=== PATIENT | female | born 1940 | race Caucasian/White ===

== ENCOUNTER 2021-03-06 11:02 | Inpatient (IN) | payer MEDICARE, OTHER ==
[~2021-03-06] VITALS: Ht 165.1 cm; Wt 65.8 kg
[2021-03-06] MEDS ORDERED: IV NORMAL SALINE 1,000ML 1,000 ML IV ONE ×2 (11:15→13:45)
--- NOTE | 2021-03-06 11:23 | PHYS DOC ---
Past History Past Medical History: Diabetes, High Cholesterol, Hypertension Additional Past Medical Histor: Parkinsonism. overactive bladder Past Surgical History: Cholecystectomy, Hysterectomy Additional Past Surgical Histo: Bilateral knee, right ankle, right shoulder Smoking: Non-smoker Alcohol Use: Rarely Drug Use: None General Adult EDM: Chief Complaint: HYPOTENSION HPI: HPI: 80-year-old female with past medical history of parkinsonism presents via EMS with report of syncopal episode prior to arrival. Patient does report history of lightheadedness. Reports history of more frequent falls. EMS reports they were called out for a lift assist 2 days ago. Patient does report some left occipital headache and history of hitting her head "some days ago ". Denies use of blood thinners. Denies chest pain. Denies dysuria or hematuria. Denies chest pain, cough, or shortness of breath. EMS reports low blood pressure upon their arrival of 82/40 for which they started IV fluid hydration. Review of Systems: Review of Systems: Constitutional: Denies fever or chills Eyes: Denies redness or eye pain HENT: Denies nasal congestion or sore throat Respiratory: Denies cough or shortness of breath Cardiovascular: Denies chest pain or palpitations GI: Denies abdominal pain, nausea, or vomiting : Denies dysuria or hematuria Musculoskeletal: Denies back pain or joint pain Integument: Denies rash or skin lesions Neurologic: Reports headache, generalized weakness, frequent falls, and syncope Complete systems were reviewed and found to be within normal limits, except as documented in this note. Current Medications: Current Meds: Current Medications Medications (Trade) Dose Ordered Sig/Chaya Start Time Stop Time Status Last Admin Dose Admin Sodium Chloride 1,000 ml @ 1,000 mls/hr 1X ONCE 03/06/21 11:15 03/06/21 12:14 UNV Physical Exam: PE: Constitutional: Well developed, well nourished, no acute distress, non-toxic appearance HENT: Normocephalic, atraumatic Eyes: PERRL, EOMI, conjunctiva normal, no discharge, no nystagmus Neck: Normal range of motion, no midline tenderness, supple Lungs & Thorax: No respiratory distress, equal chest rise and fall Abdomen: Soft, no tenderness, no guarding/rebound tenderness/distention Skin: Warm, dry, no erythema, no rash Back: No midline tenderness, no CVA tenderness Extremities: No tenderness, ROM intact, no edema, mild resting tremor to bilateral hands and arms Neurologic: Alert and oriented X 3, normal motor function, normal sensory function, no focal deficits noted Psychologic: Affect normal, judgment normal EKG: EKG: @1119 NSR at 72bpm, NO ST elevation, QRS 82ms, QT/QTc 390/429ms, p wave inversion III Radiology/Procedures: Radiology/Procedures: PROCEDURE: PORTABLE CHEST 1V EXAM: Chest, single view. HISTORY: Syncope. COMPARISON: None. FINDINGS: A frontal view of the chest is obtained. There is no infiltrate, pleural effusion or pneumothorax. The heart is normal in size. There are surgical anchors within the left humeral head. IMPRESSION: No acute pulmonary finding. Electronically signed by: Brooklynn Brandt MD (03/06/2021 11:56 AM) [id number] PROCEDURE: CT HEAD WO CONTRAST EXAM: Head CT without contrast. HISTORY: Headache. Near-syncope. TECHNIQUE: Computed tomographic images of the head were obtained without contrast. *One or more of the following individualized dose reduction techniques were utilized for this examination: 1. Automated exposure control. 2. Adjustment of the mA and/or kV according to patient size. 3. Use of iterative reconstruction technique. COMPARISON: None. FINDINGS: There is no acute or subacute extra-axial or intraparenchymal hemorrhage. There is no mass effect or midline shift. There is no hydrocephalus. There are areas of decreased attenuation within the cerebral white matter, nonspecific and likely related to chronic small vessel disease. There is cerebral volume loss. The visualized portions of the orbits, paranasal sinuses and mastoid air cells are unremarkable. No suspicious calvarial lesion is seen. IMPRESSION: 1. No acute intracranial finding. Note is made that MRI is more sensitive for acute infarction. 2. Cerebral volume loss. 3. Cerebral white matter changes, likely due to chronic small vessel disease. Electronically signed by: Brooklynn Brandt MD (03/06/2021 11:57 AM) [id number] Heart Score: C/O Chest Pain: N/A Course & Med Decision Making: Course & Med Decision Making Pertinent Labs and Imaging studies reviewed. (See chart for details) Patient with past medical history of parkinsonism presents via EMS with report of frequent falls over the last several days with syncopal episode today. Patient also reports headache to left occiput. Patient neurologically intact. Patient reportedly with low blood pressure upon EMS arrival which improved after IV fluid hydration per EMS. EKG stable. Labs obtained and posted to chart. UA with signs of infection. Empiric antibiotics given. CT head and chest x-ray without acute finding. Orthostatic VS positive with increase in pulse by 10+. Patient requiring admission for further evaluation and treatment. Discussed with Dr. Hernandez (hospitalist) who is in agreement with admission. Discussed findings and plan with patient and spouse, who acknowledge understanding and agreement. Dragon Disclaimer: Dragon Disclaimer: This electronic medical record was generated, in whole or in part, using a voice recognition dictation system. Departure Departure: Impression: Primary Impression: Syncope Qualified Codes: R55 - Syncope and collapse Additional Impressions: Frequent falls Orthostatic hypotension Hx of Parkinson's disease Headache Qualified Codes: R51.9 - Headache, unspecified Urinary tract infection Qualified Codes: N30.00 - Acute cystitis without hematuria Disposition: ADMITTED INPATIENT Admitting Physician: Peyton Hernandez Condition: STABLE Referrals: JASVIR CHOI MD (PCP) NIHSS - ED NIH Stroke Scale: NIH Stroke Scale Response (Comments) Value Level of Consciousness: 0 Alert/Responsive 0 LOC Questions: 0 Answers both correctly 0 LOC Commands: 0 Performs both tasks 0 Best Gaze: 0 Normal 0 Visual: 0 No visual loss 0 Facial Palsy: 0 Normal, symmetrical 0 Motor - Left Arm 0 No drift 0 Motor - Right Arm 0 No drift 0 Motor - Left Leg 0 No drift 0 Motor: Right Leg 0 No drift 0 Limb Ataxia: 0 Absent 0 Sensory: 0 No loss 0 Best Language: 0 Normal 0 Dysathria: 0 Normal 0 Extinction and Inattention: 0 Normal 0 Total 0 GONZALESSEBASTIAN DO March 06, 2021 11:23
--- NOTE | 2021-03-06 11:29 | EKG ---
[address] [address] Test Date: 2021-03-06 Test Time: 11:19:24 Pat Name: ANDREW GUZMAN Department: Room: Gender: F Fence Maker: NIKOS : [id number] Requested By: SEBASTIAN GONZALES Order Number: [id number] Reading MD: Measurements Intervals [place] Rate: 72 P: -34 SD: 184 QRS: 15 QRSD: 82 T: 34 QT: 390 QTc: 429 Interpretive Statements SUPRAVENTRICULAR RHYTHM QRS(T) CONTOUR ABNORMALITY CONSIDER ANTEROSEPTAL MYOCARDIAL DAMAGE POSSIBLY ABNORMAL ECG RI6.02 No previous ECG available for comparison
[2021-03-06 11:34] LABS: BASO # 0.1 x10^3/uL (0.0-0.2); BASO % 1 % (0-3); EOS # 0.3 x10^3/uL (0.0-0.7); EOS % 3 % (0-3); HEMATOCRIT 37.1 % (36.0-47.0); LYMPH # 0.8 x10^3/uL (1.0-4.8); LYMPH % 10 % (24-48); MEAN CORPUSCULAR HEMOGLOBIN 28 pg (25-35); MEAN CORPUSCULAR HGB CONC 33 g/dL (31-37); MEAN CORPUSCULAR VOLUME 86 fL (79-100); MONO # 0.6 x10^3/uL (0.0-1.1); MONO % 7 % (0-9); NEUT # 7.1 x10^3uL (1.8-7.7); NEUT % 80 % (31-73); PLATELET COUNT 267 x10^3/uL (140-400); RED BLOOD COUNT 4.33 x10^6/uL (3.50-5.40); RED CELL DISTRIBUTION WIDTH 17.4 % (11.5-14.5); WHITE BLOOD COUNT 8.9 x10^3/uL (4.0-11.0)
[2021-03-06 11:41] LABS: ANION GAP 11 (6-14); BLOOD UREA NITROGEN 12 mg/dL (7-20); BUN/CREATININE RATIO 10 (6-20); CALCIUM 8.6 mg/dL (8.5-10.1); CARBON DIOXIDE 25 mmol/L (21-32); CHLORIDE 103 mmol/L (98-107); CREATININE 1.2 mg/dL (0.6-1.0); GFR 43.4; GLUCOSE 143 mg/dL (70-99); SODIUM 139 mmol/L (136-145)
[2021-03-06 11:56] LABS: ALBUMIN 3.2 g/dL (3.4-5.0); ALK PHOS 67 U/L (46-116); ALT (SGPT) 6 U/L (14-59); AST (SGOT) 7 U/L (15-37); TOTAL BILIRUBIN 1.6 mg/dL (0.2-1.0); TOTAL PROTEIN 6.4 g/dL (6.4-8.2)
--- NOTE | 2021-03-06 11:58 | RAD ---
EXAM: Chest, single view. HISTORY: Syncope. COMPARISON: None. FINDINGS: A frontal view of the chest is obtained. There is no infiltrate, pleural effusion or pneumo thorax. The heart is normal in size. There are surgical anchors within the left humeral head. IMPRESSION: No acute pulmonary finding. Electronically signed by: Brooklynn Brandt MD (03/06/2021 11:56 AM) [id number]
--- NOTE | 2021-03-06 11:59 | RAD ---
EXAM: Head CT without contrast. HISTORY: Headache. Near-syncope. TECHNIQUE: Computed tomographic images of the head were obtained without contrast. *One or more of the following individualized dose reduction techniques were utilized for this examina tion: 1. Automated exposure control. 2. Adjustment of the mA and/or kV according to patient size. 3. Use of iterative reconstruction technique. COMPARISON: None. FINDINGS: There is no acute or subacute extra-axial or intraparenchymal hemorrhage. There is no mass effect or midline shift. There is no hydrocephalus. There are areas of decreased attenuation within the cerebral white matter, nonspecific and likely rel ated to chronic small vessel disease. There is cerebral volume loss. The visualized portions of the orbits, paranasal sinuses and mastoid air cells are unremarkable. No s uspicious calvarial lesion is seen. IMPRESSION: 1. No acute intracranial finding. Note is made that MRI is more sensitive for acute infarction. 2. Cerebral volume loss. 3. Cerebral white matter changes, likely due to chronic small vessel disease. Electronically signed by: Brooklynn Brandt MD (03/06/2021 11:57 AM) [id number]
[2021-03-06 13:01] LABS: BACTERIA,URINE MANY /HPF (0-FEW); BILIRUBIN,URINE NEG (NEG); CLARITY,URINE CLOUDY; COLOR,URINE YELLOW; GLUCOSE,URINE NEG (NEG); NITRITE,URINE NEG (NEG); RBC,URINE OCC /HPF (0-2); UROBILINOGEN,URINE 0.2 mg/dL (0.2 mg/dL); WBC,URINE 20-40 /HPF (0-4)
[2021-03-06] MEDS ORDERED: cefTRIAXone SODIUM 1 GM VIAL ONE (13:39)
[2021-03-06] MEDS ORDERED: IV NORMAL SALINE 50ML 50 ML ONE (13:39)
[2021-03-06] MEDS ORDERED: ONDANSETRON PF 4 MG/2 ML VIAL. IVP PRN (13:45)
[2021-03-06 14:26] VITALS: BP 156/84
[2021-03-06] MEDS ORDERED: EZET10TA20 PO (15:23)
[2021-03-06] MEDS ORDERED: DONE5TAB7 PO (15:23)
[2021-03-06] MEDS ORDERED: MIRA25TA PO (15:23)
[2021-03-06] MEDS ORDERED: PITA2TAB2 PO (15:23)
[2021-03-06] MEDS ORDERED: CARB1TAB22 PO (15:23)
[2021-03-06] MEDS ORDERED: SITA50TA PO (15:23)
[2021-03-06] MEDS ORDERED: ASPI-630 PO (15:23)
[2021-03-06] MEDS ORDERED: GUAI400T78 PO (15:23)
[2021-03-06] MEDS ORDERED: EZETIMIBE 10 MG TABLET PO SCH (18:00)
--- NOTE | 2021-03-06 18:24 | NUR ---
Nursing note pt is increasingly agitated and told this nurse"i just want to go home and i will call the icing machine operator on anyone if i cant leave" when educated on why pt was in the hospital and plan of care pt stated "if you dont let me leave I am going to wish you and curse you" pt has stated that pt " has a tendency to get violent" and in the past when in facilities "they have had to give her medication to calm her down"
--- NOTE | 2021-03-06 18:24 | NUR ---
Admission note Pt admitted to room 105 at 1430 via ems from ED with hypotension.
[2021-03-06 19:07] VITALS: BP 110/70
--- NOTE | 2021-03-06 19:10 | HP ---
ADMIT DATE: 03/06/2021 HISTORY OF PRESENT ILLNESS: The patient is a 80-year-old female patient with multiple medical problems including parkinsonism, who brought to the Emergency Room by EMS with a reported syncopal episode prior to arrival. The patient does not report history of lightheadedness. She also reported history of more frequent falls. She stated that she has fallen about 7 times over the last 7 days. EMS reports they were called out ____ 2 days ago. The patient does report some left occipital headache and history of hitting her head some days ago. She denied using any blood thinners. Denied any chest pain. Denied any dysuria or hematuria. EMS reports low blood pressure upon arrival of 82/40 for which they started her on IV fluid. By the time she arrived to the Emergency Room, her blood pressure was 104/73. She was extensively investigated in the Emergency Room, has had lab work done which was mostly unremarkable. Her creatinine is slightly elevated, but otherwise most of the lab works were unremarkable. Her urinalysis showed the urine was cloudy with a pH of 7, specific gravity of 1.025. There was small amount of leukocyte esterase, occasional rbc's, 20-40 wbc's and many bacteria. The patient was admitted with syncope, frequent falls, orthostatic , history of Parkinson's disease, headache and urinary tract infection. She apparently was started on ceftriaxone and received 1000 mL of normal saline and was admitted for further evaluation and treatment. PAST MEDICAL HISTORY: Significant for type 2 diabetes mellitus, hypertension, hyperlipidemia, Parkinson's disease, overactive bladder. PAST SURGICAL HISTORY: Significant for right leg and ankle fracture, redo right leg and ankle fracture, right knee meniscal tear, left knee meniscus, left shoulder rotator cuff repair, right knee replacement, has cholecystectomy. She has a prolapse and repair surgery, hysterectomy, bilateral cataract extraction, vocal cord implants. ALLERGIES: She has no known drug allergies. MEDICATIONS: She is currently on following medication: She is on Livalo 2 mg once a day, Januvia 50 mg once a day, Aricept 5 mg once a day, Zetia 10 mg once a day, guaifenesin 400 mg once a day, carbidopa/levodopa 25/100 two tablets morning and night, Myrbetriq 50 mg once a day, aspirin 81 mg once a day, Zantac 300 mg once a day, and losartan takes half a tablet 25 mg once a day. SOCIAL HISTORY: She is and lives with her . She has never smoked, does not drink alcohol or use any recreational drugs. 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 FAMILY HISTORY: She has one brother younger and healthy. Both her parents , but does not know the age of , but both of myocardial infarction. REVIEW OF SYSTEMS: As per history of present illness. PHYSICAL EXAMINATION: GENERAL: When I saw her, the patient was resting slightly propped up in bed, in no apparent respiratory distress. There was no pallor, jaundice, cyanosis, or thyromegaly. No jugular venous distention, no lower limb edema. VITAL SIGNS: Heart rate on arrival was 80 beats per minute, blood pressure is 104/73, temperature was 97.8, respiratory rate was 16 and oxygen saturation was 99% on room air. HEAD, EYES, EARS, NOSE, AND THROAT: Normocephalic and atraumatic. NECK: Supple. HEART: Showed normal first and second heart sounds. No gallop, rub or murmur. CHEST: Clear to auscultation, no crepitation or rhonchi. ABDOMEN: Distended, soft, nontender. NEUROLOGIC: She was somewhat confused, but otherwise all her cranial nerves are intact. She moves extremities without difficulty. LABORATORY DATA: Her lab work this morning showed a white cell count of 8900, hemoglobin 12, hematocrit 37, MCV 86 and platelet count of 267,000 with normal manual differential. Her chemistry showed a serum sodium 139, potassium 4, chloride 103, bicarbonate 25, anion gap of 11, BUN 12, creatinine 1.2. Estimated GFR was 43 mL per minute. Her glucose was 143, calcium was 8.6, magnesium 2. Total bilirubin 1.6. AST, ALT, alkaline phosphatase were normal. CK was 31. Total protein 6.4, albumin 3.2. Her urine was yellow, cloudy with a pH of 7, specific gravity of 1.025. There is trace of protein, negative for glucose. There was trace of ketones. The urine there is small amount of leukocyte esterase, no rbc's, but 20-40 wbc's, too many bacteria. ASSESSMENT: The patient was admitted with syncopal episode, urinary tract infection, frequent falls, history of Parkinson's disease. PLAN: My plan is to continue with IV fluid. Continue with IV antibiotics. We will resume all her medication. I will consult Dr. Schroeder. We will check her orthostatics and also consult physical and occupational therapy. BLAYNE/GRZEGORZ/EVIN DR: BLAYNE/randy TID: [id number]
[2021-03-06] MEDS: IV NORMAL SALINE 1,000ML 1,000 ML IV SCH (19:22)
[2021-03-06] MEDS: ASPIRIN CHEWABLE 81 MG TABLET. PO SCH (21:34)
[2021-03-06] MEDS: ATORVASTATIN CALCIUM 10 MG TABLET. PO SCH (21:34)
[2021-03-06] MEDS: NYSTATIN TOPICAL POWDER 15GM BOTTLE. TP SCH (21:35)
[2021-03-06 23:15] VITALS: BP 118/75
[2021-03-07 05:10] VITALS: BP 180/89
[2021-03-07 06:46] LABS: ALBUMIN 2.8 g/dL (3.4-5.0); ALBUMIN/GLOBULIN RATIO 0.9 (1.0-1.7); CALCIUM 8.1 mg/dL (8.5-10.1); CREATININE 0.9 mg/dL (0.6-1.0); GFR 60.6; POTASSIUM 3.6 mmol/L (3.5-5.1); TOTAL BILIRUBIN 1.3 mg/dL (0.2-1.0); TOTAL PROTEIN 5.8 g/dL (6.4-8.2)
[2021-03-07] MEDS: IV NORMAL SALINE 1,000ML 1,000 ML IV SCH ×2 (06:50→20:10)
[2021-03-07] MEDS: CARBIDOPA/LEVODOPA 25/100MG TABLET PO SCH ×2 (07:59→12:25)
[2021-03-07] MEDS: EZETIMIBE 10 MG TABLET PO SCH (07:59)
[2021-03-07] MEDS: LINAGLIPTIN 5 MG TABLET PO SCH (07:59)
[2021-03-07] MEDS: DONEPEZIL HCL 5 MG TABLET. PO SCH (07:59)
[2021-03-07] MEDS: MIRABEGRON 25 MG TAB.ER.24H PO SCH (08:00)
[2021-03-07] MEDS: NYSTATIN TOPICAL POWDER 15GM BOTTLE. TP SCH ×2 (09:00→20:21)
[2021-03-07] MEDS ORDERED: SITAGLIPTIN PHOSPHATE 50 MG PO SCH (09:00)
[2021-03-07] MEDS ORDERED: NON FORMULARY ITEM (Pitavastatin Calcium (Livalo) 2 MG) PO SCH (09:00)
[2021-03-07 10:35] VITALS: BP 146/86
[2021-03-07 15:23] VITALS: BP 147/81
--- NOTE | 2021-03-07 18:10 | NUR ---
PATIENT HAD A PLEASANT SHIFT, CALM AND QUIET, STAYED AWAKE IN A BED, OR UP IN A CHAIR WITH PERSONAL ALARM ON, PATIENT IS CONFUSED AND FORGETFUL D/T DEMENTIA, ASKING FOR FAMILY, ASKING FOR HER DOGS, PATIENT WAS REORIENTED A FEW TIMES. PATIENT IS COOPERATIVE WITH CARE AND COMPLIANT WITH MEDICATIONS TAKEN WHOLE.
[2021-03-07 18:43] VITALS: BP 151/79
[2021-03-07] MEDS: LACTOBACILLUS RHAMNOSUS GG 1 CAPSULE. PO SCH (20:20)
[2021-03-07] MEDS: ATORVASTATIN CALCIUM 10 MG TABLET. PO SCH (20:20)
[2021-03-07] MEDS: ASPIRIN CHEWABLE 81 MG TABLET. PO SCH (20:20)
--- NOTE | 2021-03-08 01:51 | PN ---
DATE: 03/07/2021 ATTENDING PHYSICIAN: Dr. Hernandez. SUBJECTIVE: The patient still remains very weak. She is not dizzy. She remembers close to passing out, but did not lose consciousness totally. OBJECTIVE: VITAL SIGNS: Blood pressure this morning is 148/86. No orthostasis. Pulse is 80 and regular. She is afebrile. Oxygen saturation 99% on room air. HEENT: Head is without trauma. Pupils are reactive. Sclerae nonicteric. Oropharynx is clear. NECK: Supple, no bruits. LUNGS: Good breath sounds. CARDIOVASCULAR: Showed regular heart tones. ABDOMEN: Soft. EXTREMITIES: Without edema. NEUROLOGIC FINDING: Still very weak and requires 1:1 for transfer. ASSESSMENT: 1. A 80-year-old female with syncopal episode, resolved. 2. Urinary tract infection. 3. Parkinson's disease with worsening clinical symptoms. 4. Frequent falls. PLAN: 1. Recs per Neurology. Her Sinemet dose has been increased. 2. Continue antibiotics. 3. The and the family have now both agreed. They will like a higher level of care. We will try to get her to rehab, subacute rehab they prefer ____. ANTON/ESDRAS/CHAPINCITO DR: ANTON/randy TID: [id number]
[2021-03-08 05:50] VITALS: BP 145/84
[2021-03-08] MEDS: LACTOBACILLUS RHAMNOSUS GG 1 CAPSULE. PO SCH ×2 (08:07→20:43)
[2021-03-08] MEDS: DONEPEZIL HCL 5 MG TABLET. PO SCH (08:07)
[2021-03-08] MEDS: EZETIMIBE 10 MG TABLET PO SCH (08:07)
[2021-03-08] MEDS: NYSTATIN TOPICAL POWDER 15GM BOTTLE. TP SCH ×2 (08:08→20:43)
[2021-03-08] MEDS: LINAGLIPTIN 5 MG TABLET PO SCH (08:08)
[2021-03-08] MEDS: MIRABEGRON 25 MG TAB.ER.24H PO SCH (08:08)
[2021-03-08] MEDS: CARBIDOPA/LEVODOPA 25/100MG TABLET PO SCH ×3 (08:08→20:43)
--- NOTE | 2021-03-08 09:14 | CONS ---
DATE OF CONSULTATION: 03/07/2021 REFERRING PHYSICIAN: Dr. Montgomery/David REASON FOR CONSULTATION: History of Parkinson disease and possible syncopal episode. HISTORY OF PRESENT ILLNESS: This is a 80-year-old right-handed female who was admitted through emergency room on account of a possible syncopal episode and frequent falls. According to the patient, she has had Parkinson disease diagnosed several years ago. She complains of occipital headaches of mild severity. She denies photophobia or phonophobia. The patient did have a possible syncopal episode before arrival to the emergency room. EMS was called and blood pressure at the scene was 82/40. She was started on IV line and given fluid. On arrival to the emergency room, her blood pressure was 104/73. The last fall was yesterday. As Parkinson's disease symptoms, she has been having bradykinesia, difficulty getting in and out of a chair and unsteady gait. She also had urinary frequency and she was found to have urinary tract infections. Currently, patient denies visual disturbances, nausea, vomiting, chest pain, shortness of breath or palpitation, dysarthria or dysphagia. PAST MEDICAL HISTORY: Significant for diabetes mellitus, hypertension, hyperlipidemia, Parkinson disease as described above and overactive bladder. PAST SURGICAL HISTORY: Significant for right leg and ankle fracture required surgery, right and left knee surgery for meniscus injuries, left shoulder rotator cuff repair, total right knee replacement, cholecystectomy, hysterectomy, and bilateral cataract extraction with a vocal cord implant. FAMILY HISTORY: Positive for coronary artery disease in both parents. SOCIAL HISTORY: The patient is . She lives with her at home. She denies smoking, alcohol drinking or illicit drug use. 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 CURRENT HOME MEDICATIONS: Livalo 2 mg once daily, Januvia 50 mg once daily, Aricept 5 mg daily, Zetia 10 mg daily, carbidopa/levodopa 25/100 mg 2 tablets daily, Myrbetriq 50 mg once daily, aspirin 81 mg daily, Zantac 300 mg daily and losartan 25 mg daily. ALLERGIES: No known drug allergies. PHYSICAL EXAMINATION: GENERAL: Well-developed, well-nourished female in no acute distress. VITAL SIGNS: She weighs 67.3 kilos, blood pressure 146/86, respiratory rate 20, pulse is 106, temperature 98, oxygen saturation 99% on room air. HEENT: Normocephalic, atraumatic, otherwise unremarkable. NECK: Supple, negative for carotid bruit, lymphadenopathy or thyromegaly. LUNGS: Clear to A and P. CARDIOVASCULAR: Regular rate and rhythm, normal S1, S2. There is no S3, S4 or murmur. ABDOMEN: Soft. Bowel sounds positive. EXTREMITIES: Negative for cyanosis, clubbing or pedal edema. NEUROLOGIC: Mental status: The patient is alert and oriented to herself and place. Her speech is slow, but fluent. No language dysfunction. Memory, judgment and abstracting thinking are fair. The patient denies hallucination or delusion. Cranial nerves: Visual simental are full. The pupils are reactive to light and accommodation. Extraocular movements are intact. There is no nystagmus. There is no facial motor or sensory deficit. Hearing is intact bilaterally. The palate is elevated symmetrically. Sternocleidomastoid muscles are powerful bilaterally. The patient shrugs her shoulders symmetrically, protrudes her tongue in the midline without fasciculation or atrophy. Motor: No focal muscle bulk wasting. The tone is normal. Strength is 4/5 throughout. The patient does not have any resting tremor at this time, but she does have a blank face and decreased eye blinking. There is no motor or sensory facial asymmetry. The tone is normal. Sensory examination revealed a normal pinprick and light touch senses throughout. Deep tendon reflexes were symmetric and hypoactive with absent Achilles responses. Gait: The patient has difficulty to get up from the chair. Apparently, she has unsteady stance. LABORATORY DATA: CBC revealed blood cells of 8.9 thousand, hemoglobin 12, hematocrit 37.1, platelet count 267,000. Chemistry revealed sodium of 140, potassium 3.6, chloride 106, CO2 21, BUN 10, creatinine 0.9, glucose 112, calcium 8.1. Liver enzymes are low. Troponin level is normal. Urinalysis is small urinary leukocyte esterase with white blood cells between 20-40 with many bacteria. ASSESSMENT: 1. Longstanding history of Parkinson disease, presented with bradykinesia without significant resting tremor, but had difficulty with getting in and out of a chair. 2. Multiple medical problems include hypertension, hyperlipidemia, diabetes mellitus, possible syncopal episode due to orthostatic changes versus dehydration and a history of dementia. 3. Urinary tract infection. RECOMMENDATIONS: 1. Continue with current management initiated by Dr. Hernandez/Dr. Montgomery including antibiotics for urinary tract infections. 2. Continue with current home medication. 3. Increase carbidopa/levodopa 25/100 t.i.d. 4. Physical therapy evaluation. CLOVIS/CAMILO/NEVA DR: CLOVIS/randy TID: [id number]
[2021-03-08 11:04] VITALS: BP 118/80
[2021-03-08 15:55] VITALS: BP 151/92
--- NOTE | 2021-03-08 17:53 | NUR ---
NURSING NOTE THIS NURSE TOOK OVER PT CARE, REPORT FROM KYLE EDMOND. KYLE HURLEY.
[2021-03-08 19:31] VITALS: BP 151/88
--- NOTE | 2021-03-08 20:14 | NUR ---
Pt stated, "Hello! I just wanted to tell you I'm a dipshit. I found two dogs and I took them to [facility] and held a concert to raise $[id number]."
[2021-03-08] MEDS: ATORVASTATIN CALCIUM 10 MG TABLET. PO SCH (20:43)
[2021-03-08] MEDS: ASPIRIN CHEWABLE 81 MG TABLET. PO SCH (20:43)
--- NOTE | 2021-03-08 21:48 | PN ---
DATE: 03/08/2021 ATTENDING PHYSICIAN: Dr. Hernandez. SUBJECTIVE: The patient is in good spirits. She is able to ambulate with minimal one-on-one assistance. She has no further dizziness. OBJECTIVE FINDINGS: VITAL SIGNS: Blood pressure this morning is 145/84, pulse is 90 and regular. She was afebrile and her oxygen saturations are 95% on room air. HEENT: Head is without trauma. Pupils are reactive. Sclerae nonicteric. Oropharynx is clear. NECK: Supple, no bruits. LUNGS: Clear to auscultation. CARDIOVASCULAR: Regular heart tones. No gallops. ABDOMEN: Soft, scaphoid, nontender, no organomegaly. Normoactive bowel sounds. EXTREMITIES: Show no cyanosis or edema. NEUROLOGIC: The patient is a little bit stronger. She is able to ambulate with one-on-one help. ASSESSMENT: 1. A 80-year-old female with syncopal episode, resolved. 2. Parkinson's disease with worsening clinical symptoms. 3. Urinary tract infection. 4. Frequent falls. PLAN: 1. Recs per Neurology. Sinemet dose was increased. 2. Continue antibiotics for UTI. 3. We are awaiting placement at the rehab facility. ANTON/BAYRON DR: Hank TID: [id number]
[2021-03-09 06:00] VITALS: BP 148/78
[2021-03-09] MEDS: DONEPEZIL HCL 5 MG TABLET. PO SCH (08:24)
[2021-03-09] MEDS: LINAGLIPTIN 5 MG TABLET PO SCH (08:24)
[2021-03-09] MEDS: EZETIMIBE 10 MG TABLET PO SCH (08:24)
[2021-03-09] MEDS: MIRABEGRON 25 MG TAB.ER.24H PO SCH (08:25)
[2021-03-09] MEDS: CARBIDOPA/LEVODOPA 25/100MG TABLET PO SCH (08:25)
[2021-03-09] MEDS: LACTOBACILLUS RHAMNOSUS GG 1 CAPSULE. PO SCH (08:25)
[2021-03-09] MEDS: NYSTATIN TOPICAL POWDER 15GM BOTTLE. TP SCH (08:25)
--- NOTE | 2021-03-09 09:02 | DS ---
DATE OF DISCHARGE: 03/09/2021 ATTENDING PHYSICIAN: Dr. Hernandez. FINAL DISCHARGE DIAGNOSES: 1. Syncopal episode, resolved. 2. Parkinson's. 3. Dementia associated with Parkinson's disease. 4. Urinary tract infection. 5. Frequent falls. HISTORY AND PHYSICAL: The patient is a 80-year-old female with known longstanding Parkinson's disease. She had a syncopal episode. She was admitted for further treatment and evaluation. PHYSICAL EXAMINATION: Please see the dictated note. PERTINENT LABORATORY AND X-RAY STUDIES: Admission hemoglobin was 12.0 g/dL, white count was 8900. Chemistry panel showed normal electrolytes, creatinine was 0.9 mg percent. Nonfasting blood sugar 112. Transaminases were normal. The obligatory CT of the head showed no acute strokes. She has significant cerebral volume loss, cerebral white matter changes due to chronic small vessel disease. Chest x-ray was clear. COURSE IN HOSPITAL: The patient was admitted. She was seen in consultation by Dr. Schroeder with the neurology services. His recommendations were to increase the Sinemet dose and she tolerated it well. PT, OT saw her, she required 1:1 assistance. She was able to ambulate. She remained intermittently confused. requested a transfer to a rehab facility. Therefore, on the third hospital day, arrangements were made for the patient to be discharged to [facility]. Her meds are slightly changed. The Sinemet dose was increased to t.i.d., aspirin 1 daily, Aricept 5 mg daily, Zetia 10 mg daily, guaifenesin 400 b.i.d., Myrbetriq 50 mg daily and Januvia 50 mg p.o. daily. The patient was then discharged from our hospital in stable condition with explicit drug and followup care at [facility]. Her prognosis is guarded. Total discharge time spent [address]: Hank TID: [id number] CC: JASVIR COHI MD
--- NOTE | 2021-03-09 11:03 | NUR ---
NURSE NOTE DISCHARGE PT DISCHARGED HOME VIA WHEELCHAIR PICKED UP BY [employer] [facility]. REPORT CALLED TO KAYLA. PT NOTIFIED XAVI WRIGHT
== END 2021-03-09 11:06 | DRG 73 ==
LOC: ER 11:02 → 1 SOUTH 13:38 → ER 14:15
PROVIDERS: ADMIT Internal Medicine; ATTEND Internal Medicine
DX: G90.8 Other disorders of autonomic nervous system (principal); N17.0 Acute kidney failure with tubular necrosis; N30.00 Acute cystitis without hematuria; E11.51 Type 2 diabetes mellitus with diabetic peripheral angiopathy without gangrene; E78.00 Pure hypercholesterolemia, unspecified; E78.5 Hyperlipidemia, unspecified; F02.80 Dementia in other diseases classified elsewhere, unspecified severity, without behavioral disturbance, psychotic disturbance, mood disturbance, and anxiety; G20 Parkinson's disease; I10 Essential (primary) hypertension; I95.1 Orthostatic hypotension; N32.81 Overactive bladder; R29.6 Repeated falls; Z79.82 Long term (current) use of aspirin; Z79.84 Long term (current) use of oral hypoglycemic drugs; Z79.899 Other long term (current) drug therapy; Z82.49 Family history of ischemic heart disease and other diseases of the circulatory system; Z90.710 Acquired absence of both cervix and uterus; Z96.651 Presence of right artificial knee joint; Z98.41 Cataract extraction status, right eye; Z98.42 Cataract extraction status, left eye
CPT/HCPCS: 36415; 70450; 71045; 80053; 81001; 82553; 82947; 83735; 84484; 85025; 87086; 93005; 96360; J0696; 97110; 97112; 97116; 97530; 97535; 99285-25; J7030

== ENCOUNTER 2021-04-06 10:56 | Emergency (ER) | payer MEDICARE, OTHER ==
[~2021-04-06] VITALS: Ht 165.1 cm; Wt 65.8 kg
[~2021-04-06 10:56] MED LIST: ASPI-630 PO; CARB1TAB22 PO; DONE5TAB7 PO; EZET10TA20 PO; GUAI400T78 PO; MIRA25TA PO; PITA2TAB2 PO; SITA50TA PO
--- NOTE | 2021-04-06 11:45 | RAD ---
CT HEAD INDICATION: Reason: fall to head on aspirin, no LOC / Spl. Instructions: / History: COMPARISON: 03/06/2021 Exposure: One or more of the following individualized dose reduction techniques were utilized for thi s examination: 1. Automated exposure control 2. Adjustment of the mA and/or kV according to patient size 3. Use of iterative reconstruction technique TECHNIQUE: 5 mm contiguous axial images were obtained from the skull base to the vertex in both bone and soft tissue algorithm. FINDINGS: Mild bilateral periventricular white matter hypodensities likely chronic small vessel ischemic diseas e. Small hematoma identified in the left frontal scalp region laterally. No evidence of acute intracranial hemorrhage. No extra-axial fluid collections. No mass effect or midline shift. Ventricular size is appropriate. Basal cisterns are patent. No fractures identified.Talley-white differentiation is preserved.Globes and orbits are within normal l imits. Paranasal sinuses and mastoid air cells are clear. IMPRESSION: 1. No acute intracranial findings. 2. Small hematoma left lateral frontal scalp region. Electronically signed by: Kali Lu MD (04/06/2021 11:43 AM) [id number]
[2021-04-06 11:51] VITALS: BP 119/64
--- NOTE | 2021-04-06 11:52 | PHYS DOC ---
Past History Past Medical History: Diabetes, High Cholesterol, Hypertension Additional Past Medical Histor: Parkinsonism. overactive bladder Past Surgical History: Cholecystectomy, Hysterectomy Additional Past Surgical Histo: Bilateral knee, right ankle, right shoulder Smoking: Non-smoker Alcohol Use: Rarely Drug Use: None Adult General Chief Complaint Chief Complaint: MECHANICAL FALL HPI HPI Patient is a 80-year-old female presenting via EMS after falling while at longterm. She was actually being discharged from longterm back to home on hospice care. She has history of Parkinson's and has a classic shuffling gait. Patient's was present with patient when fall happened, she did hit her head but no loss of consciousness, vision changes, nausea or vomit, motor or sensory or neurologic changes were noted. She has an abrasion on the side of her head but there is concern given that she fell and hit her head due to the fact that she is on aspirin so they presented to our ER for evaluation. Review of Systems Review of Systems Fourteen body systems of review of systems have been reviewed. See HPI for pertinent positives and negative responses, other virk all other systems are negative, non-pertinent or non-contributory Allergies Allergies Allergies Coded Allergies Type Severity Reaction Last Updated Verified No Known Drug Allergies 04/06/21 No Physical Exam Physical Exam Constitutional: Pt is oriented to person, place, and time. Pt appears well-developed and well- nourished. HEENT: Head: Normocephalic with mild abrasion noted to left superior lateral forehead without any obvious abnormalities or palpable abnormalities TMs clear, no hemotympanum Conjunctivae and EOM are normal. Pupils are equal, round, and reactive to light. Oropharynx is clear and moist. No hematomas or lacerations or abrasions to face or scalp OP clear, no blood, no malocclusion, dentition intact Nares clear, no nasal septal hematoma Midface stable Neck: C-spine midline nontender, no step-offs Cardiovascular: Normal rate, regular rhythm and normal heart sounds. Pulmonary/Chest: Effort normal and breath sounds normal. No respiratory distress. No wheezes. CTA bilaterally Abdominal: Soft. Bowel sounds are normal. Pt exhibits no distension. There is no tenderness. Musculoskeletal: No bony tenderness to extremities, no deformities, full ROM extremities Chest wall stable Pelvis stable and non-tender No vertebral TTP and spine without stepoffs Neurological: Pt is alert and oriented to person, place, and time. Moving all extremities willfully, able to wiggle all fingers and toes Alert and oriented x 3 Motor and sensory function intact Cranial nerves II through XII intact No saddle anesthesia Skin: Skin is warm and dry. No abrasions, no lacerations Psychiatric: Behavior is appropriate for situation Current Patient Data Vital Signs Vital Signs Date Time Temp Pulse Resp B/P (MAP) Pulse Ox O2 Delivery O2 Flow Rate FiO2 04/06/21 11:06 96.4 88 18 102/74 (83) 98 EKG EKG [] Radiology/Procedures Radiology/Procedures CT HEAD INDICATION: Reason: fall to head on aspirin, no LOC / Spl. Instructions: / History: COMPARISON: 03/06/2021 Exposure: One or more of the following individualized dose reduction techniques were utilized for this examination: 1. Automated exposure control 2. Adjustment of the mA and/or kV according to patient size 3. Use of iterative reconstruction technique TECHNIQUE: 5 mm contiguous axial images were obtained from the skull base to the vertex in both bone and soft tissue algorithm. FINDINGS: Mild bilateral periventricular white matter hypodensities likely chronic small vessel ischemic disease. Small hematoma identified in the left frontal scalp region laterally. No evidence of acute intracranial hemorrhage. No extra-axial fluid collections. No mass effect or midline shift. Ventricular size is appropriate. Basal cisterns are patent. No fractures identified.Talley-white differentiation is preserved.Globes and orbits are within normal limits. Paranasal sinuses and mastoid air cells are clear. IMPRESSION: 1. No acute intracranial findings. 2. Small hematoma left lateral frontal scalp region. Electronically signed by: Kali Lu MD (04/06/2021 11:43 AM) [id number] Heart Score C/O Chest Pain: No Risk Factors: Risk Factors: DM, Current or recent (<one month) smoker, HTN, HLP, family history of CAD, obesity. Risk Scores: Risk Factors: DM, Current or recent (<one month) smoker, HTN, HLP, family history of CAD, obesity. Course & Med Decision Making Course & Med Decision Making ABCs unremarkable. I disclosed entirety of ER findings and discussed most likely diagnosis of head contusion status post fall in a patient with known Parkinson's and gait instability. I discussed potential need for further diagnostic work-up but joint decision among all to defer and as such, I stressed need for close outpatient follow-up to review today's ER visit. Strict return precautions were also discussed at length with good understanding by patient. Patient voiced understanding and agreement with the plan. Patient knows to come back for repeat evaluation if concerning signs or symptoms present prior to outpatient follow-up. Hemodynamically stable, ambulatory and well-appearing at time of disposition. Dragon Disclaimer Dragon Disclaimer This electronic medical record was generated, in whole or in part, using a voice recognition dictation system. Departure Departure: Impression: Primary Impression: Fall Additional Impression: History of Parkinson's disease Disposition: HOME / SELF CARE / HOMELESS Condition: STABLE Referrals: JASVIR CHOI MD (PCP) Patient Instructions: Fall Prevention and Home Safety Additional Instructions: As discussed prior to ER departure, your vitals, physical exam and imaging of your head was nonremarkable for any emergent or surgical issues. You are most likely suffering from a hematoma and contusion to the left side of your head that should respond to supportive care such as ice, Tylenol and ibuprofen as needed for pain. Please continue to follow-up with your outpatient physician as needed. If any concerning signs or symptoms present prior to outpatient follow-up please do not hesitate to come back for repeat evaluation. Is a pleasure to take care of you and I wish you the best going forward Problem Qualifiers ANNA GONZALEZ DO Apr 06, 2021 11:52
== END 2021-04-06 12:10 | disposition home or self-care (01) ==
LOC: ER 10:56
DX: S00.03XA Contusion of scalp, initial encounter (principal); G20 Parkinson's disease; E11.9 Type 2 diabetes mellitus without complications; E78.5 Hyperlipidemia, unspecified; I10 Essential (primary) hypertension; Z90.49 Acquired absence of other specified parts of digestive tract; Z90.710 Acquired absence of both cervix and uterus; W18.39XA Other fall on same level, initial encounter; Y93.89 Activity, other specified; Y92.89 Other specified places as the place of occurrence of the external cause; Y99.8 Other external cause status
CPT/HCPCS: 70450; 99284-25

== ENCOUNTER 2021-04-17 12:21 | Observation (INO) | payer MEDICARE, OTHER ==
[~2021-04-17] VITALS: Ht 165.1 cm; Wt 56.1 kg
--- NOTE | 2021-04-17 12:50 | PHYS DOC ---
Past History Past Medical History: Diabetes, High Cholesterol, Hypertension Additional Past Medical Histor: Parkinsonism. overactive bladder (KERI GARCIA APRN) Past Surgical History: Cholecystectomy, Hysterectomy Additional Past Surgical Histo: Bilateral knee, right ankle, right shoulder (KERI GARCIA APRN) Smoking: Non-smoker Alcohol Use: Rarely Drug Use: None (KERI GARCIA APRN) General Adult EDM: Chief Complaint: MECHANICAL FALL HPI: HPI: Patient is a 80-year-old female presents after a fall at home. Patient states that she was going to the bathroom when she fell and hit her head. Patient is reporting pain to posterior head , lower back , left-sided facial, right hip. Patient is wheelchair bound currently on hospice. Family states patient did lose consciousness. Patient takes aspirin daily. Patient is alert and oriented x3. Patient has history of Parkinson's, hypertension, hyperlipidemia (KERI GARCIA APRN) Review of Systems: Review of Systems: Constitutional: Denies fever or chills Eyes: Denies change in visual acuity HENT: Denies nasal congestion or sore throat Respiratory: Denies cough or shortness of breath Cardiovascular: Denies chest pain or edema GI: Denies abdominal pain, nausea, vomiting, bloody stools or diarrhea : Denies dysuria Musculoskeletal: Reports lower back pain, right hip Integument: Bruising to the left eye Neurologic: Denies headache, focal weakness or sensory changes Endocrine: Denies polyuria or polydipsia Lymphatic: Denies swollen glands Psychiatric: Denies depression or anxiety (KERI GARCIA APRN) Allergies: Allergies: Allergies Coded Allergies Type Severity Reaction Last Updated Verified No Known Drug Allergies 04/06/21 No (KERI GARCIA APRN) Physical Exam: PE: Constitutional: Well developed, well nourished, no acute distress, non-toxic appearance. [] HENT: Normocephalic, atraumatic, bilateral external ears normal, oropharynx moist, no oral exudates, nose normal. [] Eyes: PERRLA, EOMI, conjunctiva normal, bruising to left eye Neck: Normal range of motion, no tenderness, supple, no stridor. [] Cardiovascular:Heart rate regular rhythm, no murmur [] Lungs & Thorax: Bilateral breath sounds clear to auscultation [] Abdomen: Bowel sounds normal, soft, no tenderness, no masses, no pulsatile masses. [] Skin: Warm, dry, bruising around left eye Back: Lower back tenderness, no CVA tenderness. [] Extremities: Right hip tenderness, no cyanosis Neurologic: Alert and oriented X 3, normal motor function, normal sensory function, no focal deficits noted. [] Psychologic: Affect normal, judgement normal, mood normal. [] (KERI GARCIA APRN) EKG: EKG: [] (KERI GARCIA APRN) Radiology/Procedures: Radiology/Procedures: []CT CERVICAL SPINE WO, CT HEAD AND MAXILLOFACIAL WO History: Fall. Comparison: None. Technique: Noncontrast CT of the head, cervical spine and maxillofacial bones. Findings: CT HEAD: There is no evidence for intracranial mass or hemorrhage. There is no hydrocephalus or midline shift. No abnormal extra-axial fluid collections are present. Talley/white matter differentiation is preserved. Left frontoparietal scalp soft tissue swelling. CT CERVICAL SPINE: There is no evidence for fracture in the cervical spine. Mild anterolisthesis of C4 on C5. Mild multilevel disc and facet disease.. No destructive osseous lesions are seen. Bilateral carotid bulb calcifications. 1.1 cm hypodense nodule right thyroid gland, no follow-up recommended. CT MAXILLOFACIAL: No acute facial fracture identified. Postsurgical changes of the lenses. The orbits are otherwise unremarkable. Periorbital soft tissues are normal. The paranasal sinuses and visualized mastoid air cells are well aerated. Impression: 1. No acute intracranial findings. 2. No facial fracture identified. 3. No acute findings in the cervical spine. ------- Exposure: One or more of the following individualized dose reduction techniques were utilized for this examination: 1. Automated exposure control 2. Adjustment of the mA and/or kV according to patient size 3. Use of iterative reconstruction technique. Electronically signed by: Reddy Lewis MD (04/17/2021 2:05 PM) [id number] DICTATED AND SIGNED BY: REDDY LEWIS MD DATE: 04/17/21 1358 CC: KERI GARCIA APRN; JASVIR CHOI MD ~MTH0 0 XR BILATERAL HIP (WITH OR WITHOUT PELVIS) 2 VIEWS_RIGHT History: Fall. Comparison: None. Technique: AP pelvis, 2 coned-down views of the right hip. Findings: Decreased mineralization. No fracture or dislocation. Mild degenerative changes the right femoral acetabular joint The pubic rami are intact. The sacroiliac joints demonstrate mild degenerative changes. Lower lumbar facet hypertrophy. Soft tissues are unremarkable. Impression: 1. No acute osseous abnormality of the right hip. Electronically signed by: Reddy Lewis MD (04/17/2021 2:15 PM) [id number] (KERI GARCIA APRN) Heart Score: C/O Chest Pain: No Risk Factors: Risk Factors: DM, Current or recent (<one month) smoker, HTN, HLP, family history of CAD, obesity. Risk Scores: Score 0 - 3: 2.5% MACE over next 6 weeks - Discharge Home Score 4 - 6: 20.3% MACE over next 6 weeks - Admit for Clinical Observation Score 7 - 10: 72.7% MACE over next 6 weeks - Early Invasive Strategies (KERI GARCIA APRN) Course & Med Decision Making: Course & Med Decision Making Pertinent Labs and Imaging studies reviewed. (See chart for details) [] 80-year-old female who presents after a fall at home. Patient states that she was going to the bathroom when she fell. Patient has posterior head, lower back, blackened left eye, right hip pain. Patient is currently a hospice patient and has been states he has a [employer] that comes in daily from 8-5 to take care of patient. Denying needing anything for pain at this time. Family did report patient lost consciousness. Patient currently takes aspirin daily. CT of cervical spine and head, right hip, thoracic and lumbar and maxillofacial ordered to rule out intracranial bleeding and fractures.Patient given normal saline bolus. CT of cervical spine and head, thoracic, lumbar, maxillofacial and right hip were all negative for intracranial bleeding or fractures. Urine positive for infection. Patient was stating that she was anxious and requesting something for anxiety. Patient given 0.5 of Ativan and ibuprofen for discomfort. Patient did not want a narcotic. stated that he was going to get something to eat. When did not return, the RN called to see where he was. stated that he had been talking with Vasu from [facility] and that she needed to be admitted there. stated that he was unable to care for at home anymore due to the recent falls. Has been did not express his concerns while in the emergency room to staff. RN spoke with Vasu at [facility] who states they will have a room for tomorrow but nothing today. I spoke with Dr. Hernandez who will accept patient for observation and have social work get in touch with [facility] tomorrow. Patient will be admitted for observation for falls. Patient will be started on p.o. Bactrim for UTI. (KERI GARCIA APRN) Dragon Disclaimer: Dragon Disclaimer: This electronic medical record was generated, in whole or in part, using a voice recognition dictation system. (KERI GARCIA APRN) Attending Co-Sign The patient was seen and interviewed as well as examined at the bedside. The chart was reviewed. The case was discussed. Agree with the plan of care. (KALEN RICO DO) Departure Departure: Impression: Primary Impression: Fall Qualified Codes: W19.XXXA - Unspecified fall, initial encounter Additional Impressions: Parkinson disease UTI (urinary tract infection) Qualified Codes: N30.00 - Acute cystitis without hematuria Disposition: ADMITTED INPATIENT Admitting Physician: Peyton Hernandez (KERI GARCIA APRN) Condition: STABLE Referrals: JASVIR CHOI MD (PCP) Patient Instructions: Fall Prevention and Home Safety, [id number] Additional Instructions: You were seen in the emergency room after a fall at home. All of your imaging was negative for fractures or bleeding. He is to follow-up with your PCP. Return emergency room if you have worsening symptoms or concerns. EMERGENCY DEPARTMENT GENERAL DISCHARGE INSTRUCTIONS Thank you for coming to [facility] (ED) today and trusting us with you care. We trust that you had a positivie experience in our Emergency Department. If you wish to speak to the department management, you may call the director at [phone]. YOUR FOLLOW UP INSTRUCTIONS ARE FOLLOWS: 1. Do you have a private Doctor? If you do not have a private doctor, please ask for a resource list of physicians or clinics that may be able to assist you with follow up care. 2. The Emergency Physician has interpreted your x-rays. The X-Ray specialist will also review them. If there is a change in the findings, you will be notified in 48 hours when at all possible. 3. A lab test or culture has been done, your results will be reviewed and you will be notified if you need a change in treatment. ADDITIONAL INSTRUCTIONS AND INFORMATION: 1. Your care today has been supervised by a physician who is specially trained in emergency care. Many problems require more than one evaluation for a complete diagnosis and treatment. We recommend that you schedule your follow up appointment as recommended to ensure complete treatment of you illness or injury. If you are unable to obtain follow up care and continue to have a problem, or if your condition worsens, we recommend that you return to the ED. 2. We are not able to safely determine your condition over the phone nor are we able to give sound medical advice over the phone. For these safety reasons, if you call for medical advice we will ask you to come to the ED for further evaluation. 3. If you have any questions regarding these discharge instructions please call the ED at [phone]. SAFETY INFORMATION: In the interest of safety, wellness, and injury prevention; we encourage you to wear your sealbelt, if you smoke; quite smoking, and we encourage family to use a protective helmet for bicycling and other sporting events that present an increased risk for head injury. IF YOUR SYMPTOMS WORSEN OR NEW SYMPTOMS DEVELOP, OR YOU HAVE CONCERNS ABOUT YOUR CONDITION; OR IF YOUR CONDITION WORSENS WHILE YOU ARE WAITING FOR YOUR FOLLOW UP APPOINTMENT; EITHER CONTACT YOUR PRIMARY CARE DOCTOR, THE PHYSICIAN WHOSE NAME AND NUMBER YOU WERE GIVEN, OR RETURN TO THE ED IMMEDIATELY. Scripts Alprazolam (XANAX) 0.25 Mg Tablet 1 TAB PO DAILY for ANXIETY for 7 Days, #7 TAB Prov: KERI GARCIA APRN 04/17/21 Nitrofurantoin Macrocrystal (NITROFURANTOIN) 100 Mg Capsule 1 CAP PO BID for UTI, #20 CAP Prov: KERI GARCIA APRN 04/17/21 KERI GARCIA APRN Apr 17, 2021 12:50 KALEN RICO DO Apr 19, 2021 06:19
[2021-04-17] MEDS ORDERED: IV NORMAL SALINE 1,000ML 1,000 ML IV ONE (13:15)
--- NOTE | 2021-04-17 13:24 | EKG ---
[address] [address] Test Date: 2021-04-17 Test Time: 12:28:30 Pat Name: ANDREW GUZMAN Department: Room: Gender: F [employer]: NIKOS : 1940 Requested By: KERI GARCIA Order Number: [id number] Reading MD: Luis De Anda Measurements Intervals Bock Rate: 83 P: 37 AK: 160 QRS: 9 QRSD: 72 T: 34 QT: 360 QTc: 429 Interpretive Statements SINUS RHYTHM QRS(T) CONTOUR ABNORMALITY CONSISTENT WITH ANTEROSEPTAL INFARCT AGE UNDETERMINED ABNORMAL ECG Electronically Signed On 04-18-2021 11:50:09 CDT by Luis De Anda
[2021-04-17 13:27] LABS: CALCIUM 8.7 mg/dL (8.5-10.1); GFR 53.6; POTASSIUM 4.3 mmol/L (3.5-5.1)
[2021-04-17 13:33] LABS: ALBUMIN 3.1 g/dL (3.4-5.0); ALBUMIN/GLOBULIN RATIO 0.9 (1.0-1.7); TOTAL BILIRUBIN 2.2 mg/dL (0.2-1.0); TOTAL PROTEIN 6.4 g/dL (6.4-8.2)
[2021-04-17 13:38] LABS: BASO # 0.1 x10^3/uL (0.0-0.2); BASO % 1 % (0-3); EOS # 0.2 x10^3/uL (0.0-0.7); EOS % 2 % (0-3); HEMATOCRIT 38.9 % (36.0-47.0); HEMOGLOBIN 12.5 g/dL (12.0-15.5); LYMPH # 1.2 x10^3/uL (1.0-4.8); LYMPH % 12 % (24-48); MEAN CORPUSCULAR HEMOGLOBIN 27 pg (25-35); MEAN CORPUSCULAR HGB CONC 32 g/dL (31-37); MEAN CORPUSCULAR VOLUME 84 fL (79-100); MONO # 0.8 x10^3/uL (0.0-1.1); MONO % 8 % (0-9); NEUT # 7.9 x10^3uL (1.8-7.7); NEUT % 78 % (31-73); PLATELET COUNT 258 x10^3/uL (140-400); RED BLOOD COUNT 4.62 x10^6/uL (3.50-5.40); RED CELL DISTRIBUTION WIDTH 18.9 % (11.5-14.5); WHITE BLOOD COUNT 10.2 x10^3/uL (4.0-11.0)
--- NOTE | 2021-04-17 14:08 | RAD ---
CT CERVICAL SPINE WO, CT HEAD AND MAXILLOFACIAL WO History: Fall. Comparison: None. Technique: Noncontrast CT of the head, cervical spine and maxillofacial bones. Findings: CT HEAD: There is no evidence for intracranial mass or hemorrhage. There is no hydrocephalus or midline shift. No abnormal extra-axial fluid collections are present. Talley/white matter differentiation is preserved. Left frontoparietal scalp soft tissue swelling. CT CERVICAL SPINE: There is no evidence for fracture in the cervical spine. Mild anterolisthesis of C4 on C5. Mild multilevel disc and facet disease.. No destructive osseous lesions are seen. Bilateral carotid bulb calcifications. 1.1 cm hypodense nodule right thyroid gland, no follow-up abrahan mmended. CT MAXILLOFACIAL: No acute facial fracture identified. Postsurgical changes of the lenses. The orbits are otherwise unremarkable. Periorbital soft tissues are normal. The paranasal sinuses and visualized mastoid air cells are well aerated. Impression: 1. No acute intracranial findings. 2. No facial fracture identified. 3. No acute findings in the cervical spine. ------- Exposure: One or more of the following individualized dose reduction techniques were utilized for thi s examination: 1. Automated exposure control 2. Adjustment of the mA and/or kV according to patient size 3. Use of iterative reconstruction technique. Electronically signed by: Reddy Farr MD (04/17/2021 2:05 PM) [id number]
--- NOTE | 2021-04-17 14:15 | RAD ---
CT LUMBAR SPINE WO, CT THORACIC SPINE WO History:Fall. Technique: Noncontrast CT was performed of the thoracic and lumbar spine. Multiplanar reconstructions were performed. Comparison: None Findings: There are 12 rib-bearing thoracic vertebral segments and 5 nonrib-bearing lumbar vertebral segments. No acute fracture or dislocation is identified. Normal thoracic spine alignment. There is g rade 1 anterolisthesis of L4 on L5 on the basis of facet hypertrophy. No spondylolysis. Multilevel marginal osteophytes in the thoracic spine. Moderate disc space narrowing at L1-L2. Mild d isc space narrowing L4-L5 and L5-S1. Multilevel advanced lumbar facet hypertrophy. No airspace consolidation, pleural effusion or pneumothorax within the visualized portions of the alice gs. Moderate coronary artery calcification. No mediastinal adenopathy. Cholecystectomy clips. Aortoil iac calcification without aneurysm. Mild sigmoid diverticulosis. No abdominal free fluid. Impression: 1. No acute osseous abnormality of the thoracic and lumbar spine. Degenerative changes as above. Exposure: One or more of the following individualized dose reduction techniques were utilized for thi s examination: 1. Automated exposure control 2. Adjustment of the mA and/or kV according to patient size 3. Use of iterative reconstruction technique. Electronically signed by: Reddy Farr MD (04/17/2021 2:13 PM) [id number]
--- NOTE | 2021-04-17 14:17 | RAD ---
XR BILATERAL HIP (WITH OR WITHOUT PELVIS) 2 VIEWS_RIGHT History: Fall. Comparison: None. Technique: AP pelvis, 2 coned-down views of the right hip. Findings: Decreased mineralization. No fracture or dislocation. Mild degenerative changes the right femoral mya tabular joint The pubic rami are intact. The sacroiliac joints demonstrate mild degenerative changes. Lower lumbar facet hypertrophy. Soft tissues are unremarkable. Impression: 1. No acute osseous abnormality of the right hip. Electronically signed by: Reddy Farr MD (04/17/2021 2:15 PM) [id number]
[2021-04-17] MEDS ORDERED: IBUPROFEN 600 MG TABLET. PO ONE (15:45)
[2021-04-17 16:04] LABS: BILIRUBIN,URINE SMALL (NEG); CLARITY,URINE CLEAR; COLOR,URINE YELLOW; GLUCOSE,URINE NEG (NEG)
[2021-04-17 16:05] LABS: NITRITE,URINE POS (NEG)
[2021-04-17 16:07] LABS: BACTERIA,URINE MOD /HPF (0-FEW); RBC,URINE 0 /HPF (0-2); SQUAMOUS EPITHELIAL CELL,UR FEW /LPF
[2021-04-17] MEDS ORDERED: ALPR0.25 PO (16:28)
[2021-04-17] MEDS ORDERED: NITR100C PO (16:28)
[2021-04-17] MEDS ORDERED: SMZ/TMP 800/160MG TABLET. PO ONE ×2 (18:15→21:00)
[2021-04-17 20:17] VITALS: BP 113/76
[2021-04-17 22:58] VITALS: BP 104/72
[2021-04-18 06:04] VITALS: BP 124/72
--- NOTE | 2021-04-18 06:52 | NUR ---
Patient arrived at unit at 1999 by potato chip cooker machine transported from the ED. Patient vitals were stable (see vitals) and patient was pleasant, A&O x1 to 2 with some intermittent confusion.
--- NOTE | 2021-04-18 08:23 | HP ---
ADMIT DATE: 04/17/2021 ATTENDING PHYSICIAN: Dr. Montgomery. CHIEF COMPLAINT: Fall. HISTORY OF PRESENT ILLNESS: The patient is a 80-year-old female with end-stage Parkinson's disease. She has been cared for by her . She recently went to hospice care. She had fallen at home. No acute obvious bony fractures were identified. cannot manage her at home. He requested [facility] placement with hospice care. She was admitted for management and symptomatic pain. PAST MEDICAL HISTORY: Significant for advanced Parkinson's disease, type 2 diabetes, hypertension, hyperlipidemia, generalized debilitation. She is bedridden and unable to walk. PAST SURGICAL HISTORY: Includes cholecystectomy, hysterectomy, previous bilateral knee surgery, right ankle, right shoulder. SOCIAL HISTORY: She is a nonsmoker and nondrinker MEDICATIONS: Her current medicines were reviewed. ALLERGIES: She has no recorded drug allergies. CURRENT MEDICATIONS: Include the following: She was scheduled to take alprazolam, aspirin, Sinemet, Aricept, Zetia, guaifenesin, Myrbetriq, nitrofurantoin, calcium and Januvia. FAMILY HISTORY: Unobtainable. REVIEW OF SYSTEMS: Significant for generalized debilitation, end-stage Parkinson's disease. She is a hospice patient. All other systems reviewed and turned to be negative. PHYSICAL EXAMINATION: GENERAL: When I saw her, this is a frail elderly female who is nonambulatory. She can barely raise her head off the bed. VITAL SIGNS: On this admission, her physical exam showed a blood pressure of 124/72, her pulse is 90 and regular. She was afebrile, oxygen saturation 95%. HEENT: Head is without trauma. Pupils are reactive. Sclerae nonicteric. Oropharynx clear. NECK: Supple, no bruits. LUNGS: Shallow respirations. CARDIOVASCULAR: Regular heart tones. No gallops. ABDOMEN: Soft. EXTREMITIES: Show no edema. NEUROLOGIC: Nonfunctional. She is bedridden. She is nonambulatory. Mildly confused. PERTINENT LABORATORY AND X-RAY STUDIES: The hemoglobin is 12.5 g/dL with a white count of 10,200. Electrolytes within normal range. Nonfasting blood sugar 119. Extensive x-rays were done of cervical spine, CT thoracic spine, lumbar spine, no acute intracranial findings identified. Cervical spine, there is some anterolisthesis with no acute fractures. Maxillofacial films showed no acute facial fractures. No long bone fractures identified. ASSESSMENT: 1. A 80-year-old female with end-stage Parkinson's disease, unable to care for herself at home. 2. Frequent falls. 3. Hypertension. 4. Type 2 diabetes. PLAN: 1. Admit to the inpatient unit. 2. We will have her aids social worker person contact her in terms of placement in [facility] with hospice care. 3. Some home meds continued. 4. She remains a DNR per advanced directive. MINH DR: Hank TID: [id number]
[2021-04-18] MEDS ORDERED: LACTOBACILLUS RHAMNOSUS GG 1 CAPSULE. PO SCH (09:00)
[2021-04-18] MEDS ORDERED: DONEPEZIL HCL 5 MG TABLET. PO SCH (09:00)
[2021-04-18] MEDS ORDERED: NITROFURANTOIN MONOHYD/M-CRYST 100 MG CAPSULE. PO SCH (09:00)
[2021-04-18] MEDS ORDERED: LINAGLIPTIN 5 MG TABLET PO SCH (09:00)
[2021-04-18] MEDS ORDERED: ALPRAZolam 0.25 MG TABLET PO SCH (09:00)
[2021-04-18] MEDS ORDERED: ACETAMINOPHEN 500 MG TABLET PO ONE (09:15)
[2021-04-18] MEDS: CARBIDOPA/LEVODOPA 25/100MG TABLET PO SCH ×2 (09:32→13:07)
[2021-04-18 11:20] VITALS: BP 104/73
--- NOTE | 2021-04-18 12:56 | NUR ---
report called to [facility]
--- NOTE | 2021-04-18 12:59 | DS ---
DATE OF DISCHARGE: 04/18/2021 ATTENDING PHYSICIAN: Dr. Mnotgomery. FINAL DISCHARGE DIAGNOSES: 1. End-stage Parkinson disease with inability to care for herself at home. 2. Frequent falls. 3. Essential hypertension. 4. Type 2 diabetes mellitus. HISTORY AND PHYSICAL: The patient is a 80-year-old female with end-stage Parkinson disease. They had already been set up with hospice at home. She fell again. unable to care for her. She was admitted overnight from the Emergency Department with anticipation going to a snf for end-of-life care. PHYSICAL EXAMINATION: Please see the dictated note. PERTINENT LABORATORIES AND X-RAY STUDIES: Admission hemoglobin was 12.5 g/dL with a white count of 10,200. Electrolytes within normal range. Nonfasting blood sugar 119 mg/dL. The obligatory workup showed a negative CT of the spine, thoracic spine, lumbar spine, pelvis, head and facial bones, no evidence of acute fractures. COURSE IN THE HOSPITAL: The patient was admitted overnight and monitored. She remained complete bedrest with total nursing care. Arrangements were then made for snf placement at [facility]. She was discharged then for end-of-life care with hospice at [facility]. Her discharge meds are unchanged. They will include the following: She will continue her Sinemet 3 times a day, alprazolam p.r.n., aspirin, Aricept 5 mg daily, guaifenesin, Myrbetriq, nitrofurantoin, Januvia and pitavastatin. Her prognosis is terminal. She has a DNR order per advance directive. She was discharged then from our hospital in stable condition with specific instruction of end-of-life care at this particular snf. ABRIL DR: Hank TID: [id number] CC: HODA FLOWERS MD, JASVIR CHOI MD
--- NOTE | 2021-04-18 13:09 | NUR ---
called and notified him of discharge to [facility], he said he was aware.
--- NOTE | 2021-04-18 13:52 | NUR ---
PT TRANSFERRED TO [facility] VIA TRANSPORTATION. ALL BELONGINGS SENT WITH PT.
[2021-04-18] MEDS ORDERED: ASPIRIN CHEWABLE 81 MG TABLET. PO SCH (21:00)
== END 2021-04-18 13:53 ==
LOC: ER 12:21 → 1 SOUTH 19:20 → INTOOBSV 19:20 → 1 SOUTH 19:56
PROVIDERS: ADMIT Internal Medicine; ATTEND Internal Medicine
DX: N30.00 Acute cystitis without hematuria (principal); G20 Parkinson's disease; I10 Essential (primary) hypertension; E11.9 Type 2 diabetes mellitus without complications; R29.6 Repeated falls; E78.5 Hyperlipidemia, unspecified; R53.81 Other malaise; Z90.49 Acquired absence of other specified parts of digestive tract; Z90.710 Acquired absence of both cervix and uterus; Z79.899 Other long term (current) drug therapy; Z98.890 Other specified postprocedural states; Z51.5 Encounter for palliative care; Z79.82 Long term (current) use of aspirin; Z99.3 Dependence on wheelchair; Z66 Do not resuscitate; W18.30XA Fall on same level, unspecified, initial encounter; Y92.009 Unspecified place in unspecified non-institutional (private) residence as the place of occurrence of the external cause; Y93.89 Activity, other specified; Y99.8 Other external cause status
CPT/HCPCS: 36415; 70450; 70486; 72125; 72128; 72131; 73502; 80053; 81001; 85025; 87077; 87086; 87186; 93005; 96361; 96374; 97162; 97166; 97530; 99285; G0378; J2060; J7030; G0379